=== PATIENT | female | born 1995 | race Caucasian/White ===

== ENCOUNTER 2017-09-15 14:12 | Emergency (ER) | payer OTHER ==
--- NOTE | 2017-09-15 15:40 | UC ---
Nausea/Vomiting/Diarrhea HPI - HPI Summary HPI Summary: 22F presents with cold like symptoms for past week. She admits to nausea and diarrhea. She has not vomited yet. She has generalized abdominal pain that is improved with Tylenol. She has been having a fever. She states that the personal chef at her places has the stomach bug. She denies any chest pain or SOB. She admits to sinus congestion and mild cough. She has history of asthma. - History of Current Complaint Chief Complaint: UCGeneralIllness Stated Complaint: FLU LIKE SYMPTOMS Time Seen by Provider: 09/15/17 15:27 Hx Last Menstrual Period: 08/15/18 Pain Intensity: 8 - Allergies/Home Medications Allergies/Adverse Reactions: Allergies Allergy/AdvReac Type Severity Reaction Status Date / Time Shellfish Allergy Allergy Anaphylatic Verified 09/15/17 15:19 Shock Home Medications: Home Medications Acetaminophen TAB* [Tylenol TAB*] 650 mg PO Q4H PRN 09/15/17 [History Confirmed 09/15/17] PMH/Surg Hx/FS Hx/Imm Hx Endocrine History: Other Other Endocrine History: no DM Respiratory History: Asthma - Surgical History Surgical History: None - Family History Known Family History: Positive: Respiratory Disease - Social History Alcohol Use: Occasionally Substance Use Type: None Smoking Status (MU): Never Smoked Tobacco Review of Systems Constitutional: Negative Gastrointestinal: Abdominal Pain, Diarrhea, Nausea All Other Systems Reviewed And Are Negative: Yes Physical Exam Triage Information Reviewed: Yes Appearance: Well-Appearing Vital Signs: Initial Vital Signs Temp 99.3 F 09/15/17 15:17 Pulse 102 09/15/17 15:17 Resp 16 09/15/17 15:17 BP 124/86 09/15/17 15:17 Pulse Ox 100 09/15/17 15:17 Vital Signs Reviewed: Yes Eyes: Positive: Conjunctiva Clear ENT: Positive: Normal ENT inspection, Pharynx normal, TMs normal Respiratory: Positive: Lungs clear, Normal breath sounds Cardiovascular: Positive: RRR Abdomen Description: Positive: Soft, Other: - mild diffuse tenderness Bowel Sounds: Positive: Present Musculoskeletal Exam: Normal Neurological Exam: Normal Psychological Exam: Normal Skin Exam: Normal Naus/Vom/Diarrhea Course/Dx - Course Course Of Treatment: 22F presents with cold like symptoms for past week. She admits to nausea and diarrhea. She has not vomited yet. She has generalized abdominal pain that is improved with Tylenol. She has been having a fever. She states that the personal chef at her places has the stomach bug. She denies any chest pain or SOB. She admits to sinus congestion and mild cough. She has history of asthma. on exam mild diffuse abdomen. flu neg. will treat with zofran. patient understand and agrees with plan. - Differential Dx/Diagnosis Differential Diagnoses - Female: Other - influenza, gastroenteritis, upper resp infection Provider Diagnoses: diarrhea, abdominal pain Condition At Discharge: Good Discharge - Discharge Plan Condition: Good Disposition: HOME Prescriptions: Ondansetron ODT TAB* [Zofran 4 MG Odt TAB*] 4 mg PO Q6H PRN #20 tab.odt PRN Reason: Nausea Patient Education Materials: Gastroenteritis (ED) Referrals: Non Staff,Doctor [Primary Care Provider] - Additional Instructions: Likely viral at this point Can take Zofran every 6 hours as needed for nausea Drink small amounts of fluid as tolerated When able to eat follow BRAT diet: Bananas, rice, applesauce, toast Take ibuprofen or Tylenol for pain as needed every 6 hours Follow up with primary within 5 days Return to ED if develop fever that does not respond to Tylenol or ibuprofen, severe abdominal pain, or any new or worsening symptoms
== END 2017-09-15 16:03 | disposition home or self-care (01) ==
LOC: UCCORT 14:12
DX: R19.7 Diarrhea, unspecified (principal); R10.9 Unspecified abdominal pain; J45.909 Unspecified asthma, uncomplicated
CPT/HCPCS: 87502; 99202; G0463

== ENCOUNTER 2017-09-21 09:00 | Emergency (ER) | payer OTHER | END 2017-09-21 10:22 | disposition left against medical advice (07) | LOC: UCCORT 09:00 | DX: J32.9 Chronic sinusitis, unspecified (principal); Z53.21 Procedure and treatment not carried out due to patient leaving prior to being seen by health care provider ==